=== PATIENT | female | born 2000 | race Two or more races ===

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

== ENCOUNTER 2021-01-29 01:22 | Emergency (ER) | payer MEDICAID ==
[~2021-01-29] VITALS: Ht 160 cm; Wt 54.4 kg
[2021-01-29] MEDS ORDERED: ALBUTEROL SULF 2.5 MG/0.5ML(0.5%) NEB SOLN NEB ONE (01:45)
[2021-01-29] MEDS ORDERED: methylPREDNISolone SOD SUCC 125 MG/2 ML VL IM ONE (01:45)
[2021-01-29] MEDS ORDERED: LORATADINE 10 MG TAB PO ONE (01:45)
[2021-01-29] MEDS ORDERED: FAMOTIDINE (10MG/ML) 2ML VL IV ONE (01:45)
[2021-01-29] MEDS ORDERED: diphenhdrAMINE HCL 50 MG/1 ML VL IV ONE (01:45)
[2021-01-29] MEDS: EPINEPHrine HCL 1 MG/1 ML AMP SC ONE ×2 (01:45→02:14)
[2021-01-29] MEDS ORDERED: IPRATROPIUM BROM 0.5 MG/2.5ML INH SOL NEB ONE (01:45)
[2021-01-29] MEDS ORDERED: methylPREDNISolone SOD SUCC 125 MG/2 ML VL IV ONE (02:15)
[2021-01-29 05:00] VITALS: BP 106/58
== END 2021-01-29 05:21 | disposition home or self-care (01) ==
LOC: ER 01:22 → EDBD 01:22 → ER 05:21
DX: J98.01 Acute bronchospasm (principal)
CPT/HCPCS: 93005; 94640; 96374; 96375; 99284; J0171; J1200; J2930; J3490; J7644